=== PATIENT | male | born 1950 | race American Indian/Alaskan Native ===

== ENCOUNTER 2017-09-14 06:21 | Day surgery (SDC) | payer MEDICARE ==
[2017-09-14] MEDS ORDERED: ECOTRIN PO ONE (06:46)
[2017-09-14] MEDS ORDERED: NACL 0.9% 500 ML 500 ML IV SCH (07:00)
[2017-09-14 07:22] LABS: Basophils # (Auto) 0.1 K/mm3 (0.0-0.1); Basophils % (Auto) 1.3 % (0.0-1.8); Eosinophils # (Auto) 0.3 K/mm3 (0.0-0.4); Eosinophils % (Auto) 4.4 % (0.0-4.3); Hematocrit 41.8 % (35.5-45.6); Hemoglobin 14.4 gm/dl (11.8-15.2); Lymphocytes # (Auto) 1.7 K/mm3 (1.2-5.4); Lymphocytes % (Auto) 24.1 % (13.4-35.0); Mean Corpuscular HGB Conc 35 % (32-34); Mean Corpuscular Hemoglobin 29 pg (28-32); Mean Corpuscular Volume 85 fl (84-94); Monocytes % (Auto) 14.3 % (0.0-7.3); Platelet Count 371 K/mm3 (140-440); Red Blood Count 4.94 M/mm3 (3.65-5.03); Red Cell Distribution Width 15.3 % (13.2-15.2)
[2017-09-14 07:33] LABS: BUN/Creatinine Ratio 13; Blood Urea Nitrogen 13 mg/dL (9-20); Calcium 9.1 mg/dL (8.4-10.2); Hemolysis Index 437; INR 0.99 (0.87-1.13)
[2017-09-14] MEDS ORDERED: HEPARIN/NS 5000 UNIT/500ML(CATH LAB) 1,000 ML IR ONE (08:11)
[2017-09-14] MEDS ORDERED: CALAN ONE (08:11)
[2017-09-14] MEDS ORDERED: VERSED ONE (08:12)
[2017-09-14] MEDS ORDERED: XYLOCAINE 2% INFILTRATI ONE (08:12)
[2017-09-14] MEDS ORDERED: SUBLIMAZE ONE (08:13)
[2017-09-14] MEDS: NITROGLYCERIN SYRINGE 3 ML ONE ×2 (09:22→09:23)
[2017-09-14] MEDS: HEPARIN 10,000 UNITS/10 ML ONE ×2 (09:22→09:23)
--- NOTE | 2017-09-14 10:36 | Cardiac Catherization Report ---
CARDIAC CATHETERIZATION REFERRING PHYSICIAN: Geovani Leonard MD INDICATION FOR PROCEDURE: The patient is a pleasant 67-year-old -[place] Citizen gentleman with multiple risk factors, abnormal stress test, recurrent chest pain despite multiple antianginals. Risks, benefits, and alternatives discussed prior to obtaining informed consent. PROCEDURE IN DETAIL: The patient was brought to the slab depiler operator in postoperative state, prepped and draped in a sterile fashion. Nick's test in right hand was normal. A 2 mL of 2% lidocaine used to anesthetize the right wrist. A standard 6-Faroese hydrophilic sheath used to cannulate the right radial artery via modified Seldinger technique. All exchanges performed to exchange a J-tip guidewire. JL3.5 catheter used to engage the left main. No dampening or ventricularization. Cineangiography performed in all projections. JR4 catheter was used to cross the aortic valve under fluoroscopic guidance. Left ventriculography performed in 30 MCBRIDE and 30 MARSHALLESE projections via hand injections, catheter flushed. Manual pullback performed with continuous pressure monitoring. Catheter used to engage the right coronary. No dampening or ventricularization. Cineangiography performed in all projections. Next, due to recurrent chest pain and hypertension, a pigtail was used for root aortography in the MARSHALLESE projection with power injector. Next, catheter removed from the body of wire, sheath removed. Manual pressure used to achieve hemostasis. I directly supervised the administration of moderate sedation with fentanyl and Versed from 09:20 a.m. to 09:45 a.m. INTERPRETATION DATA: The patient remained in normal sinus rhythm throughout the procedure. Aortic pressure is 120/70, LV pressure is 120, LVEDP of 15 mmHg. Left ventriculography revealed normal systolic performance with estimated ejection fraction of 55-60%. No evidence of aortic stenosis. CORONARY ANATOMY: This is a right dominant system. Right coronary is a moderate sized vessel, courses AV groove, distally bifurcates in the posterior and posterolateral branch, no discrete stenosis identified. Left main without significant disease, bifurcates in left anterior descending and left circumflex. Left circumflex, moderate sized vessel, courses AV groove. No significant disease noted. LAD is a moderate sized vessel, courses anterior intergroove, wraps around the apex, no significant disease. There is a segment of the mid LAD, which is intramyocardial, no evidence of diastolic collapse. ASHLEY 3 flow throughout. No significant obstructive disease identified in the LAD or diagonal system. Left main without significant disease. Root aortography reveals normal contour, normal great vessel anatomy, no evidence of aortic insufficiency, no evidence of penetrating aortic ulcer or dissection. CONCLUSIONS: 1. No angiographic evidence of significant epicardial coronary artery disease in this right dominant system. 2. Normal left ventricular systolic performance with estimated ejection fraction of 55-60%. 3. No evidence of aortic stenosis. 4. Normal LVEDP. 5. Root aortography without evidence of dissection, penetrating aortic ulcer or aortic insufficiency. 6. 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 The patient is clinically stable, chest pain free. Recommend risk factor modification. Results of procedure explained at length to the patient and family. All questions and concerns were addressed. Standard radial care. Needs to quit smoking. Follow up with Dr. Leonard in the office. Stable cardiac status. JOB# [id number] SBM/NTS
--- NOTE | 2017-09-14 10:57 | Short Stay Summary ---
Short Stay Documentation Date of service: 09/14/17 - History H&P: obtained from office - Allergies and Medications Current Medications: Allergies No Known Allergies Allergy (Unverified 09/14/17 06:23) Home Medications Medication Instructions Recorded Confirmed Last Taken Type AtorvaSTATin [Lipitor] 10 mg PO HS 09/14/17 09/14/17 09/13/17 History 10mg Duloxetine HCl [DULoxetine] 30 mg PO DAILY 09/14/17 09/14/17 09/13/17 History 30mg Folic Acid [Folvite] 1 mg PO DAILY 09/14/17 09/14/17 09/13/17 History 1mg Gabapentin [Neurontin] 100 mg PO TID 09/14/17 09/14/17 09/13/17 History 100mg Loratadine [Claritin] 10 mg PO DAILY 09/14/17 09/14/17 09/13/17 History 10mg Metoprolol [Lopressor TAB] 50 mg PO DAILY 09/14/17 09/14/17 09/13/17 History 50mg Omeprazole 20 mg PO DAILY 09/14/17 09/14/17 09/13/17 History 20mg Oxybutynin [Ditropan] 5 mg PO DAILY 09/14/17 09/14/17 09/13/17 History 5mg Tamsulosin [Flomax] 0.4 mg PO DAILY 09/14/17 09/14/17 09/13/17 History 0.4mg Trazodone HCl 150 mg PO HS 09/14/17 09/14/17 09/13/17 History 150mg Active Medications Sodium Chloride (Nacl 0.9% 500 Ml) 500 mls @ 50 mls/hr IV DIRECT ELIZABETH Stop: 09/14/17 16:59 Last Admin: 09/14/17 07:18 Dose: 50 mls/hr - Brief post op/procedure progress note Date of procedure: 09/14/17 Pre-op diagnosis: chest pain, abnormal stress test Procedure: Left heart cath - Hospital course Hospital course: Please see dictated cath report. - Disposition Condition at discharge: Good Disposition: DC-[id number] TO HOME OR SELFCARE - Discharge Diagnoses (1) Chest pain Status: Acute (2) Abnormal stress test Status: Acute (3) Hypertension Status: Chronic (4) Hyperlipidemia Status: Chronic Short Stay Discharge Plan Activity: advance as tolerated Weight Bearing Status: Weight Bear as Tolerated Diet: low fat, low cholesterol Wound: keep clean and dry Follow up with: ERROL ORO NP-C [Primary Care Provider] - 7 Days Forms: William THORNTON D/C Instructions
[2017-09-14 12:37] VITALS: BP 103/60
== END 2017-09-14 12:30 | disposition home or self-care (01) ==
LOC: CATHLABREC 06:21
PROVIDERS: ATTEND Internal Medicine
DX: R07.89 Other chest pain (principal); R94.39 Abnormal result of other cardiovascular function study; I10 Essential (primary) hypertension; Z79.899 Other long term (current) drug therapy; Z79.01 Long term (current) use of anticoagulants; Z82.49 Family history of ischemic heart disease and other diseases of the circulatory system; E78.5 Hyperlipidemia, unspecified
CPT/HCPCS: 36415; 80048; 84132; 85025; 85610; 85730; 93005; 93010; 93458; 93567; 99156; C1894; J1644; J2250; J3010; J7040; Q9967

== ENCOUNTER 2018-10-03 11:45 | Day surgery (SDC) | payer MEDICARE ==
[~2018-10-03 11:45] MED LIST: NACL 0.9% 1000 ML 1,000 ML IV SCH
[2018-10-03] MEDS ORDERED: DIPRIVAN 10 MG/ML IV ONE (15:43)
[2018-10-03 17:01] VITALS: BP 126/75
--- NOTE | 2018-10-03 17:36 | Operative Report ---
Operative Report Operative Report: Date of procedure: 10/03/2018 Procedure: Colonoscopy with multiple snare polypectomies, Submucosal injection with elevation of polyps, Multiple Hot Biopsy Polypectomies, Ablation of colon polyps. Attending physician: Kael Vega M.D. Bowling Ball Patcher: Kael Vega M.D. Indication: Patient is a 68-year-old male who presents for colonoscopy. Patient has a history of recurrent rectal bleeding/blood in stool and anorectal discomfort as well. He also has reportedly history of ulcerative colitis for which he has been on treatment for more than 8 years. He states however that he has been asymptomatic for the greater part of that period and more recently has not been on any medications. This colonoscopy serves to evaluate patient so that treatment may be directed based on the findings. Consent: Informed consent was obtained after advising the patient and family regarding nature of this procedure, its indications, potential benefits as well as possible complications including but not limited to bleeding perforation and adverse reaction to medication, infection as well as other cardiopulmonary complications. An informed written and verbal consent was then obtained after due opportunity was provided for questions and answers. Monitoring: Patient was monitored continuously with pulse oximetry and electrocardiographic recordings as well as blood pressure recordings. Vital signs remained stable throughout this procedure with no untoward events. Preoperative assessment: Patient was assessed immediately prior to this procedure for capacity to tolerate monitored anesthesia care and moderate sedation as well as general anesthesia. Patient's ASA classification is 2, Mall ampati class is 2, Hyomental distance is 3. Instrument: Olympus video colonoscope. Medications: Propofol given intravenously in divided doses. For details please refer to anesthesia records. Description of procedure: Patient was placed in the left lateral decubitus position after achieving sedation, a digital rectal examination was performed following which the colonoscope was introduced into the anal verge and advanced to the cecum which was identified by the cecal valve, the appendiceal orifice, as well as by the cecal strap and direct transillumination. The colonoscope was subsequently withdrawn with careful inspection of all mucosal surfaces. Patient tolerated this procedure well and was subsequently taken to the recovery room. The following findings were noted. Findings: The preparation was suboptimal with retained thick liquid stool in the cecum and ascending colon descending colon and sigmoid colon. In the transverse colon, patient had 2 polyps. One polyp was diminutive measuring approximately 5 mm. It was unremarkable and removed by hot biopsy polypectomy. The adjacent polyp was larger measuring approximately 8 mm polyp and was flat. It was elevated with submucosal injection of saline and removed by snare electrocautery and retrieved. In the descending colon, patient had a sessile polyp which was diminutive and removed by hot biopsy polypectomy. It measured approximately 5- 6 mm. In the sigmoid colon, patient had 3 polyps each measuring approximately 5-6 mm . They were all removed by hot biopsy polypectomy. There was a diminutive polyp in the rectum which was ablated. Patient was noted to have prominent large internal hemorrhoids seen on the retroflexed view at the anal verge. Impression: Transverse polyp status post snare polypectomy and submucosal injection: Transverse colon polyp status post hot biopsy polypectomy Descending colon polyp status post hot biopsy polypectomy Possible sigmoid colon polyp status post hot biopsy polypectomy Rectal polyp status post ablation Retained stool Prominent internal hemorrhoids. Retained stool. Plan: Follow pathology report. High-fiber diet. Consider repeat colonoscopy in one year due to retained stool. There were no mucosal changes in the colon to suggest underlying ulcerative colitis.
--- NOTE | 2018-10-03 17:37 | Discharge Summary ---
Short Stay Discharge Plan Activity: advance as tolerated Weight Bearing Status: Weight Bear as Tolerated Diet: regular Follow up with: ERROL ORO NP-C [Primary Care Provider] - 7 Days
== END 2018-10-03 11:46 | disposition home or self-care (01) ==
LOC: GIO 11:45
PROVIDERS: ATTEND Internal Medicine Gastroenterology
DX: K63.5 Polyp of colon (principal); K62.1 Rectal polyp; K64.8 Other hemorrhoids; K62.5 Hemorrhage of anus and rectum; F17.210 Nicotine dependence, cigarettes, uncomplicated; I10 Essential (primary) hypertension; E78.5 Hyperlipidemia, unspecified; K21.0 Gastro-esophageal reflux disease with esophagitis; E78.00 Pure hypercholesterolemia, unspecified; J44.9 Chronic obstructive pulmonary disease, unspecified; M19.90 Unspecified osteoarthritis, unspecified site; F32.9 Major depressive disorder, single episode, unspecified; Z79.899 Other long term (current) drug therapy; Z98.49 Cataract extraction status, unspecified eye; Z98.890 Other specified postprocedural states; Z82.61 Family history of arthritis; Z82.49 Family history of ischemic heart disease and other diseases of the circulatory system
CPT/HCPCS: 45381; 45384; 45385; 45388; 88305; J2704